=== PATIENT | male | born 1955 | race Caucasian/White ===

== ENCOUNTER 2017-04-23 05:31 | Day surgery (SDC) | payer BC ==
[~2017-04-23] VITALS: Ht 170.2 cm; Wt 67.1 kg
--- NOTE | ~2017-04-23 | EGD ---
EGD REPORT [facility] [address] [place]. [id number] NAME: CHRIS SILVA : 55 STATUS : REG [facility]#: [id number] AGE: 61 ADM/REG DATE : 04/23/17 MR#: [id number] REPORT SERV DATE: 04/23/17 DICTATED BY: NEELA WHEELER DATE: 04/23/17 REPORT STATUS : Draft [facility] BY: [facility] DATE: 04/23/17 End[facility] Center Patient Name: Chris Silva Date of : 1955 Attending MD: NEELA WHEELER MD Procedure Date No Time: 04/23/2017 Procedure: Colonoscopy Indications: High risk colon cancer surveillance: Personal history of colonic polyps, Last colonoscopy: February 2014 Referring MD: JAREN HERNANDEZ Medicines: See the Anesthesia note for documentation of the administered medications Complications: No immediate complications. Procedure: Pre-Anesthesia Assessment: - ASA Grade Assessment: III - A patient with severe systemic disease. After I obtained informed consent, the scope was passed under direct vision. Throughout the procedure, the patient's blood pressure, pulse, and oxygen saturations were monitored continuously. The [facility] [id number] was introduced through the anus and advanced to the terminal ileum, with identification of the appendiceal orifice and IC valve. The colonoscopy was performed without difficulty. The patient tolerated the procedure well. The quality of the bowel preparation was adequate. Findings: The perianal and digital rectal examinations were normal. Diverticula were found in the sigmoid colon, in the descending colon and in the ascending colon. Internal hemorrhoids were found during retroflexion and were small. Impression: - Diverticulosis in the sigmoid colon, in the descending colon and in the ascending colon. - Internal hemorrhoids. Recommendation: - Patient has a contact number available for emergencies. The signs and symptoms of potential delayed complications were discussed with the patient. Return to normal activities tomorrow. Written discharge instructions were provided to the patient. - Regular diet. - Continue present medications. - Repeat colonoscopy in 5 years for surveillance. EGD REPORT [address] [address] NAME: CHRIS SILVA : 55 STATUS : REG [facility]#: [id number] AGE: 61 ADM/REG DATE : 04/23/17 MR#: [id number] REPORT SERV DATE: 04/23/17 DICTATED BY: NEELA WHEELER DATE: 04/23/17 REPORT STATUS : Draft TRANSCRIBED BY: [email or web address] DATE: 04/23/17 Procedure Code(s): --- Professional --- 02097, Colonoscopy, flexible, proximal to splenic flexure; diagnostic, with or without collection of specimen(s) by brushing or washing, with or without colon decompression (separate procedure) Diagnosis Code(s): --- Professional --- K64.8, Other hemorrhoids K57.30, Diverticulosis of large intestine without perforation or abscess without bleeding Z86.010, Personal history of colonic polyps CPT copyright 2013 [employer]. All rights reserved. The codes documented in this report are preliminary and upon organizational psychologist review may be revised to meet current compliance requirements. Neela Wheeler MD NEELA WHEELER MD 04/23/2017 7:29 AM This report has been signed electronically. Number of Addenda: 0 Note Initiated On: 04/23/2017 7:04 AM Scope Withdrawal Time 0 hours 9 minutes 46 seconds [id number] [place] [address]
[~2017-04-23 05:31] MED LIST: ACET500CAP PO; ADDERALL15 MG PO; ADDERALL20 MG PO; ALEVE220 MG PO; ALLEGRA180 PO; AMOXIL875 MG PO; AMOXIL875 PO; ASAB PO; BIAXIN5 PO; BUSPAR10 PO; BYSTOLIC5 MG PO; CALTRA600D PO; CINNAMONPO PO; CO Q-10100 MG PO; COZ50 PO; COZAAR100 MG PO; CYANO1000T PO; FLONASE NAS; IRON OTC PO; IRON325 MG PO; JARDI10T PO; JARDI25B PO; JARDIANCE PO; LEVOTHYROXIN150 MCG PO; LIPITOR80 MG PO; LOP50 PO; MAALOX PO; METHOC750B PO; MYLANTA ULTR1 TAB PO; NIACIN 500 PO; NIACOR500 MG PO; NITROSTAT0.4 MG SL; NORV10 PO; NORV5 PO; OSTEO BI-FLEX1 EACH PO; OTC ROLAIDS PO; PERI-COLACE1 TAB PO; PLAVIX PO; PRILOSEC40 MG PO; PROTONIX PO; SUCR PO; SYN.15 PO; VITC500 PO; ZOCOR40 PO; [UNRECOGNIZED DRUG - OTHER] TOP
== END 2017-04-23 23:59 | disposition home or self-care (01) ==
LOC: DMU 05:31
PROVIDERS: Internal Medicine Gastroenterology
PROC: 0DJD8ZZ Inspection of Lower Intestinal Tract, Via Natural or Artificial Opening Endoscopic (ICD-10-PCS; principal; 2017-04-23 07:00)
DX: Z12.11 Encounter for screening for malignant neoplasm of colon (principal); K57.30 Diverticulosis of large intestine without perforation or abscess without bleeding; K64.8 Other hemorrhoids; K21.9 Gastro-esophageal reflux disease without esophagitis; I10 Essential (primary) hypertension; E78.00 Pure hypercholesterolemia, unspecified; E11.9 Type 2 diabetes mellitus without complications; I25.10 Atherosclerotic heart disease of native coronary artery without angina pectoris; I73.9 Peripheral vascular disease, unspecified; Z79.899 Other long term (current) drug therapy; Z87.891 Personal history of nicotine dependence; Z86.010 Personal history of colon polyps; Z86.73 Personal history of transient ischemic attack (TIA), and cerebral infarction without residual deficits; Z87.820 Personal history of traumatic brain injury; Z95.5 Presence of coronary angioplasty implant and graft; Z95.820 Peripheral vascular angioplasty status with implants and grafts; Z90.49 Acquired absence of other specified parts of digestive tract; Z88.8 Allergy status to other drugs, medicaments and biological substances; Z98.890 Other specified postprocedural states
CPT/HCPCS: 82962